=== PATIENT | male | born 1980 | race Caucasian/White ===

== ENCOUNTER 2024-06-08 06:32 | Day surgery (SDC) | payer BC, SELFPAY | END 2024-06-08 12:52 | disposition home or self-care (01) | LOC: GI 06:32 | PROVIDERS: ATTENDING PHYSICIAN Internal Medicine | DX: Z12.11 Encounter for screening for malignant neoplasm of colon (principal); K62.89 Other specified diseases of anus and rectum; D12.2 Benign neoplasm of ascending colon; D12.5 Benign neoplasm of sigmoid colon | CPT/HCPCS: 45385; 45381; 45380; 88305 ==

== ENCOUNTER → 2024-06-21 07:47 | Outpatient (REF) | payer BC, SELFPAY | LOC: RAD 07:47 | PROVIDERS: ATTENDING PHYSICIAN Internal Medicine; FAMILY PHYSICIAN Physician Assistant | DX: C18.9 Malignant neoplasm of colon, unspecified (principal) | CPT/HCPCS: 71260; 74177; Q9967 ==

== ENCOUNTER → 2024-06-24 19:00 | Outpatient (REF) | payer BC, SELFPAY | LOC: MRI 19:00 | PROVIDERS: ATTENDING PHYSICIAN Surgery; FAMILY PHYSICIAN Physician Assistant | DX: K76.89 Other specified diseases of liver (principal) | CPT/HCPCS: 74183; A9575 ==

== ENCOUNTER 2024-07-07 11:12 | Inpatient (IN) | payer BC, SELFPAY ==
[2024-06-27 08:56] LABS: Hematocrit 43.6 % (39.0-52.0); Hemoglobin 15.4 g/dL (13.0-18.0); Mean Corp Hgb Conc. 35.3 g/dL (33.0-37.0); Mean Corpuscular Hgb 30.4 pg (27.0-31.0); Mean Platelet Volume 11.4 fL (7.4-10.4); Platelet Count 210 10^3/uL (130-400); Red Blood Cell Count 5.07 10^6/uL (4.70-6.10); Red Cell Dist. Width 13.1 % (11.5-14.5); White Blood Cell Count 5.5 10^3/uL (4.8-10.8)
[2024-06-27 09:08] LABS: INR 0.99; PT 13.4 Sec (11.4-14.6)
[2024-06-27 09:09] LABS: APTT 29.9 Sec (23.4-35.0)
[2024-06-27 09:29] LABS: ALT (SGPT) 23 U/L (0-50); AST (SGOT) 21 U/L (17-59); Albumin 4.5 g/dl (3.5-5.0); Alkaline Phosphatase 73 U/L (38-126); Blood Urea Nitrogen 15 mg/dl (9-20); Calcium 9.1 mg/dl (8.4-10.2); Carbon Dioxide 30 mmol/L (22-30); Chloride 100 mmol/L (98-107); Glucose 99 mg/dl (70-99); Potassium 4.4 mmol/L (3.5-5.1); Sodium 139 mmol/L (135-145); Total Protein 6.8 g/dl (6.3-8.2); eGFR > 60.00
[2024-06-27 10:31] LABS: Glycohemoglobin (HgbA1c) 4.7 % (4.0-5.6)
[2024-06-27 10:33] VITALS: BMI 26.8
[2024-07-07] VITALS (14 sets, daily range): BP systolic 50–159; BP diastolic 84–99; BMI 26.8
[2024-07-07] MEDS: NORMOSOL-R/PLASMALYTE-A 1000 IV ×2 (11:43→19:17)
[2024-07-07] MEDS: NEURONTIN 600 MG PO (11:43)
[2024-07-07] MEDS: TYLENOL 1000 MG PO (11:44)
[2024-07-07] MEDS: ENTEREG 12 MG PO (11:44)
[2024-07-07] MEDS: HEPARIN 5000 UNITS SC (11:44)
--- NOTE | 2024-07-07 17:22 | W.OR.COLCA ---
Colon Cancer Post Op Note
Immediate Post Op
Primary Surgeon: Justice Jamil MD
Assisting Surgeon: GURMEET Reid
Pre-op Diagnosis: proximal sigmoid colon cancer
Post-op Diagnosis: same
Procedure Performed: 1) robotic sigmoidectomy 2) takedown splenic flexure 3) flexible sigmoidoscopy
Anesthesia Type: general plus local
Specimen / Cultures: 1) sigmoid colon (including some distal descending) with stitch marking proximal 2) proximal anastomotic donut
Estimated Blood Loss: 50 cc
Complications: no immediate
Operative Findings: proximal sigmoid tattoo with associated small tumor
Anastomosis at 17 cm
Winchester in bladder.
Colon Resection
Colon Resection
Operation performed with curative intent: Yes
Tumor Location: Sigmoid Colon (proximal)
Sigmoid Resection: Inferior Mesenteric
[2024-07-07 17:55] LABS: Glucose - Point of Care 150 mg/dl (70-99)
[2024-07-07] MEDS: DEMEROL 12.5 MG IV (18:02)
[2024-07-07 18:10] LABS: Hematocrit 45.4 % (39.0-52.0); Hemoglobin 15.9 g/dL (13.0-18.0); Mean Corpuscular Hgb 30.3 pg (27.0-31.0); Mean Corpuscular Volume 86.6 fL (80.0-94.0); Mean Platelet Volume 11.2 fL (7.4-10.4); Platelet Count 290 10^3/uL (130-400); Red Blood Cell Count 5.24 10^6/uL (4.70-6.10); Red Cell Dist. Width 13.1 % (11.5-14.5); White Blood Cell Count 23.9 10^3/uL (4.8-10.8)
[2024-07-07 18:25] LABS: Blood Urea Nitrogen 14 mg/dl (9-20); Calcium 8.5 mg/dl (8.4-10.2); Carbon Dioxide 20 mmol/L (22-30); Chloride 102 mmol/L (98-107); Estimated Creatinine Clearance 93 ml/min; Glucose 162 mg/dl (70-99); Magnesium 2.3 mg/dl (1.6-2.3); Potassium 4.5 mmol/L (3.5-5.1); Sodium 136 mmol/L (135-145); eGFR > 60.00
[2024-07-07 18:58] LABS: % Basophils 0.2 % (0-2); % Eosinophils 0.1 % (0-6); % Immature Granulocytes 0.7 % (0-0.5); % Lymphocytes 5.5 % (20.5-51.1); % Monocytes 2.6 % (1.7-9.3); % Neutrophils 90.9 % (42.2-75.2); Absolute Basophils 0.1 10^3/uL (0-0.2); Absolute Immature Granulocytes 0.2 10^3/uL (0-0.05); Absolute Lymphocytes 1.3 10^3/uL (1.2-3.4); Absolute Monocytes 0.6 10^3/uL (0.1-0.6); Absolute Neutrophils 21.7 10^3/uL (1.4-6.5); Nucleated Red Blood Cells % 0 % (-)
[2024-07-07] MEDS: TORADOL 15 MG IV ×2 (19:01→23:27)
[2024-07-07] MEDS: DILAUDID 0.25 MG IV (19:04)
[2024-07-07] MEDS: DILAUDID 0.5 MG IV ×2 (19:24→22:12)
[2024-07-07] MEDS: TYLENOL 650 MG PO (20:08)
--- NOTE | 2024-07-07 21:14 | PTCARENOTE ---
Pt arrived to [facility] at 1940 from PACU in a bed. Pt has 4 lap sites and RLQ YOANNA with sanguineous output. Pt on 2L of O2 96%. Winchester catheter to be removed POD #2. Pt drowsy and oriented to room and call caicedo. Bed locked and in lowest position.
Admission questions answered by pt. Pt medications that were brought in sent down to pharmacy. Care ongoing.
[2024-07-07] MEDS: ZOFRAN 4 MG IV (23:29)
[2024-07-08] MEDS: TYLENOL PO ×2 (00:04→10:51)
[2024-07-08] MEDS: DILAUDID 0.5 MG IV ×5 (02:14→19:34)
[2024-07-08 03:53] VITALS: BP 137/82
[2024-07-08] MEDS: TYLENOL 650 MG PO (04:38)
[2024-07-08] MEDS: TORADOL 15 MG IV ×4 (05:41→23:55)
[2024-07-08] MEDS: NORMOSOL-R/PLASMALYTE-A 1000 IV (05:55)
[2024-07-08 06:00] VITALS: BMI 25.0
[2024-07-08 07:07] LABS: % Basophils 0.1 % (0-2); % Immature Granulocytes 0.5 % (0-0.5); % Lymphocytes 4.9 % (20.5-51.1); % Monocytes 7.5 % (1.7-9.3); Absolute Immature Granulocytes 0.1 10^3/uL (0-0.05); Absolute Lymphocytes 0.6 10^3/uL (1.2-3.4); Absolute Monocytes 0.9 10^3/uL (0.1-0.6); Absolute Neutrophils 10.9 10^3/uL (1.4-6.5); Hematocrit 40.4 % (39.0-52.0); Hemoglobin 14.7 g/dL (13.0-18.0); Mean Corp Hgb Conc. 36.4 g/dL (33.0-37.0); Mean Corpuscular Hgb 30.8 pg (27.0-31.0); Mean Corpuscular Volume 84.5 fL (80.0-94.0); Mean Platelet Volume 11.4 fL (7.4-10.4); Nucleated Red Blood Cells % 0 % (-); Platelet Count 202 10^3/uL (130-400); Red Blood Cell Count 4.78 10^6/uL (4.70-6.10); Red Cell Dist. Width 12.6 % (11.5-14.5); White Blood Cell Count 12.5 10^3/uL (4.8-10.8)
[2024-07-08 07:26] VITALS: BP 137/94
[2024-07-08 07:44] LABS: Blood Urea Nitrogen 16 mg/dl (9-20); Calcium 8.3 mg/dl (8.4-10.2); Carbon Dioxide 24 mmol/L (22-30); Chloride 101 mmol/L (98-107); Estimated Creatinine Clearance 93 ml/min; Glucose 119 mg/dl (70-99); Magnesium 2.3 mg/dl (1.6-2.3); Potassium 4.1 mmol/L (3.5-5.1); Sodium 134 mmol/L (135-145); eGFR > 60.00
[2024-07-08] MEDS: ZOFRAN 4 MG IV ×2 (09:22→15:09)
--- NOTE | 2024-07-08 09:53 | PTCARENOTE ---
Addendum entered by Hillary Araiza RN 07/08/24 10:19:
pt made NPO with ice chips. only/meds, refused oral meds this AM
Original Note:
pt nauseous this AM small amount of vomit this AM, Zofran administered. Still c/o of headache he arrived to hospital with. Tried to convince to drink coffee since does drink daily.
--- NOTE | 2024-07-08 10:10 | W.PN.CRS1 ---
Today's Communication / Plan
-
npo with chips
lovenox
d/c travis
Assessment/Plan
-
POD#1 robotic sigmoidectomy
WBC: 12.5, Hgb 14.7
Afebrile, tachy 100-110's
-Given nausea, will back down to NPO with chips
-Maintain IVFs
-OOB as tolerated
-D/C travis
-Maintain YOANNA drain until discharge
-Lovenox for DVT prophylaxis. TEDS/SCDS in place.
-Will monitor tachycardia. Plan to consult hospitalist if persists.
-Pain control: Tylenol/Toradol standing, Dilaudid PRN.
-OR pathology pending
Subjective Data
Procedure
07/07/2024- 1) robotic sigmoidectomy 2) takedown splenic flexure 3) flexible sigmoidoscopy
Subjective Data
Date of Service: July 08, 2024
Patient states he had some belching and feels nauseous. He has mild abdominal pain. He has not vomited. No bowel function yet.
Objective Data
-
Vital Signs
Temp Pulse Resp BP Pulse Ox
98.4 F 107 16 137/94 98
07/08/24 07:26 07/08/24 07:26 07/08/24 07:26 07/08/24 07:26 07/08/24 09:30
Intake & Output
07/07/24 07/08/24 07/09/24
06:59 06:59 06:59
Intake Total 1420 / 1420 320 / 320
Output Total 760 / 760 320 / 320
Balance 660 / 660 0 / 0
Intake:
Oral fluids 120 / 120
IV fluids (Total) 1300 / 1300 320 / 320
Normosol 300 / 300
Output:
Drain Output (Total) 160 / 160 20 / 20
Right Abdomen Pepe 160 / 160
Urine, Travis 600 / 600 300 / 300
Lab Results
07/08/24 05:59
07/08/24 05:59
Physical Exam
-
General: No Acute Distress and AOx3
Abdomen: Soft, Non Distended and Tender (mild around incisions)
Skin: Warm and Dry
--- NOTE | 2024-07-08 10:43 | PTCARENOTE ---
pt order NGT for vomit, at this time is refusing. Nurse did go over concerns of ileus what it is and why we place NGT to decompress. pt stated he just had Winchester removed can he please try to walk and move and see if he improves. TT to PILAR Garland
Annette who is aware. will encourage movement and monitor
[2024-07-08 10:50] VITALS: BP 132/82
[2024-07-08] MEDS: ENTEREG PO (10:50)
[2024-07-08] MEDS: ZESTRIL PO (10:50)
[2024-07-08] MEDS: ZYRTEC PO (10:50)
[2024-07-08] MEDS: PROTONIX PO (10:50)
--- NOTE | 2024-07-08 12:30 | W.PN.UPDATE ---
Update Note
Progress Note Update
I spoke with patient. He had vomited earlier in the morning and refused NGT. I spoke with him via phone. He no longer has nausea and he passed flatus/bowel movements. I told the patient that if he vomits again, he will need an NGT. He understands
and will keep everyone updated.
[2024-07-08] MEDS: OFIRMEV 100 IV ×3 (12:40→23:55)
--- NOTE | 2024-07-08 13:17 | CON.HOSP ---
Addendum entered and electronically signed by Eduar Vallejo MD 07/08/24 16:13:
I personally performed a history and physical exam of the patient and discussed management with the resident. I reviewed the resident's note and agree with the documented findings and plan of care Consult/CC. See seperate note
Original Note:
Family Physician
-
Family Physician: Amber Dasilva
Chief Complaint
-
Frontal headache, tachycardia
History of Present Illness
Patient is a 44-year-old male with newly diagnosed sigmoid cancer status post robotic sigmoidectomy 07/07. Today is postop day 1. Earlier today, he was complaining of nausea and had one episode of vomiting. Patient denies any nausea or vomiting at
this time. He had a small bowel movement couple hours ago and has been passing gas. At this time, he complains of moderate frontal left-sided headache with left eye pain. Headache is more tension type than throbbing. Mentions he has a history of
migraine and this is very similar to his migraine episodes. Also, mentions he feels a lot of pain now that his pain meds are wearing off.
His vitals are stable except for mild tachycardia (low 100s). Denies any chest pain, shortness of breath, diaphoresis. Denies feeling strong palpitations. He is currently on not on telemetry.
His labs show mildly elevated white cell count (12.5). Rest of labs are normal.
Medical History
Past Medical History
Past Medical History: Reports Asthma (Intermittent), Cancer (Sigmoid), GERD, HTN and Psychiatric (Depression/anxiety)
Additional Past Medical History:
Vitamin D deficiency
Additional Past Surgical History:
Robotic sigmoidectomy
Social History
Tobacco: Non-smoker
Alcohol: Other (Last drink was New Year's Tara)
Drug: None
Personal:
Living: With Family
Family History
Family History: Cancer (Colon cancer in maternal grandmother and grandfather)
Allergies / Home Medications
Allergies reflects when Allergies were last updated in [facility].
Home Medications with original date entered in [facility] [facility]
Allergy/Medication List:
Allergies
Allergy/AdvReac Type Severity Reaction Status Date / Time
No Known Allergies Allergy Unverified 07/07/24 11:21
Home Medications
albuterol sulfate 90 mcg/actuation aerosol inhaler 2 puff inhalation PRN PRN SOB, Wheezes 06/30/24
cetirizine 10 mg tablet (Zyrtec) 10 mg PO DAILY 06/30/24
fluticasone 250 mcg-salmeterol 50 mcg/dose blistr powdr for inhalation (Advair Diskus) 1 inh inhalation Daily PRN SOB, Wheezes 06/30/24
lisinopril 5 mg tablet 5 mg PO DAILY 06/30/24
melatonin 5 mg chewable tablet 5 mg PO HS PRN insomnia 06/30/24
metronidazole 500 mg tablet 500 mg PO DIRECTED 06/30/24
neomycin 500 mg tablet 1 g PO DIRECTED 06/30/24
omeprazole 20 mg tablet,delayed release 20 mg PO DAILY 06/30/24
sodium sul 1.479 gram-potas ch 0.188 gram-magnes sul 0.225 gram tablet (Sutab) 0 tab PO PER PKG DIR 06/30/24
Review of Systems
-
History Source: Patient
A 12 point Review of Systems was completed except as noted: Yes
Constitutional: Reports See HPI
EENT: Reports See HPI
Respiratory: Reports See HPI
Cardiac: Reports See HPI
Abdomen/GI: Reports See HPI
: Reports See HPI
Musculoskeletal: Reports See HPI
Skin: Reports See HPI
Neurological: Reports See HPI
Endocrine: Reports See HPI
Hematologic/Lymphatic: Reports See HPI
Psych: Reports See HPI
Physical Exam
Vital Signs
Vital Signs
Temp Pulse Resp BP Pulse Ox
98.5 F 106 14 132/82 100
07/08/24 10:50 07/08/24 10:50 07/08/24 10:50 07/08/24 10:50 07/08/24 10:50
Physical Exam
General: Well Developed and Pain
HEENT: Normocephalic, Anicteric and Other (Dry mucous membranes)
Respiratory: Clear; Negative Wheezes or Rales
Cardiac: S1/S2 and Regular Rhythm
GI: Soft, Normal Bowel Sounds, Tender (Mild tenderness around site of incision), Distended and Other (YOANNA drain, incisions intact)
Rectal: Brown
Musculoskeletal: No Clubbing, Cyanosis, No Cyanosis and No Edema
Skin: Warm and Dry
Neuro: AO x 3 and No Motor Deficits; Negative Slurred Speech, Facial Droop or Tremors
Psych: Calm
Laboratory Results
-
Laboratory Results
07/08/24 05:59
07/08/24 05:59
PT 13.4 Sec (11.4-14.6) 06/27/24 06:46
INR 0.99 06/27/24 06:46
APTT 29.9 Sec (23.4-35.0) 06/27/24 06:46
Total Bilirubin 1.0 mg/dl (0.2-1.3) 06/27/24 06:46
AST 21 U/L (17-59) 06/27/24 06:46
ALT 23 U/L (0-50) 06/27/24 06:46
Alkaline Phosphatase 73 U/L (38-126) 06/27/24 06:46
Impression / Plan
-
IMPRESSION:
#Sigmoid cancer status post robotic sigmoidectomy
-POD day 1
-Keep n.p.o. for now given vomiting earlier today
-Will switch Normosol to D5 LR given migraine headaches
-Has had gas passage and bowel movements
-Continue rest of care as primary team
# Tachycardia
-Pain managed with Dilaudid 0.5 q4h, Toradol and Tylenol-might need stat pain meds if pain escalates
-Will check TSH
-EKG obtained-normal sinus tachycardia- no evidence of ischemic changes, arrhythmia or PE
-Monitor on telemetry
-Currently afebrile, if patient does develop fever, might do an infection workup
# Frontal headache
-Patient's symptoms consistent with previous migraine episodes
-Will start D5 LR
CODE STATUS
full code
[2024-07-08 15:21] VITALS: BP 131/88
--- NOTE | 2024-07-08 15:44 | CM ---
Met with pt and his at bedside
Pt reports he lives with hi in a 2 story home; 1 step to enter, 12 steps to 2nd fl
Independent, employed, drives
DME - none
SNF/HH - denies past hx
Has ride at discharge
PCP - Amber Dasilva
Pharm - [facility] on [address]
Plan - anticipate home no needs vs w/VN
--- NOTE | 2024-07-08 16:05 | W.PN.UPDATE ---
Update Note
Progress Note Update
44-year-old male admitted for elective surgery. We were consulted for headache and mild tachycardia
I personally performed a history and physical exam of the patient and discussed management with the resident. I reviewed the resident's note and agree with the documented findings and plan of care consultation/CC.
Seen earlier today. Late documentation
Patient awake alert not in any acute distress
Headache is better, no neck stiffness
Cardiovascular system mildly tachycardic
Chest clear to auscultation
Abdomen soft and nontender, YOANNA drain, diminished bowels sounds
No pedal edema no calf tenderness
# Headache # vomiting
Has a history of migraines
Also has not had coffee for the past 2 days since surgery
IV Toradol for pain
If patient can have clears would consider restarting coffee
Add dextrose to IV fluids
# Vomiting resolved.
# Tachycardia
Likely pain related as the patient is reporting pain
EKG noted
Treat pain
Check TSH
Follow on telemetry
# Colon cancer status post robotic sigmoidectomy, takedown of splenic flexure, flexible sigmoidoscopy by Dr. Jamil 07/07/2024
Diet advancement and plans per colorectal surgery
Currently n.p.o.
# History of asthma-continue Advair
# Hypertension-continue lisinopril
# Ex-smoker
# DVT prophylaxis-Lovenox
# Full code
Discussed with nursing
Discussed with family at bedside
Thank you for the consultation. We will follow the patient
[2024-07-08] MEDS: LOVENOX 40 MG SC (17:20)
[2024-07-08] MEDS: D5LR 1000 IV (17:31)
[2024-07-08 19:00] VITALS: BP 123/82
[2024-07-08] MEDS: ENTEREG 12 MG PO (19:37)
[2024-07-08 23:00] VITALS: BP 115/80
[2024-07-09] MEDS: DILAUDID 0.5 MG IV ×5 (00:36→19:47)
[2024-07-09 03:00] VITALS: BP 133/83
[2024-07-09] MEDS: D5LR 1000 IV ×2 (04:08→12:06)
[2024-07-09] MEDS: OFIRMEV 100 IV (05:29)
[2024-07-09] MEDS: TORADOL 15 MG IV ×3 (05:30→17:56)
[2024-07-09 05:55] VITALS: BMI 25.3
[2024-07-09 07:35] VITALS: BP 129/85
[2024-07-09 07:48] LABS: % Basophils 0.2 % (0-2); % Eosinophils 0.2 % (0-6); % Immature Granulocytes 0.4 % (0-0.5); % Lymphocytes 10.8 % (20.5-51.1); % Monocytes 7.5 % (1.7-9.3); % Neutrophils 80.9 % (42.2-75.2); Absolute Monocytes 0.7 10^3/uL (0.1-0.6); Absolute Neutrophils 7.4 10^3/uL (1.4-6.5); Hematocrit 38.1 % (39.0-52.0); Hemoglobin 13.4 g/dL (13.0-18.0); Mean Corp Hgb Conc. 35.2 g/dL (33.0-37.0); Mean Corpuscular Hgb 30.2 pg (27.0-31.0); Mean Corpuscular Volume 85.8 fL (80.0-94.0); Nucleated Red Blood Cells % 0 % (-); Platelet Count 173 10^3/uL (130-400); Red Blood Cell Count 4.44 10^6/uL (4.70-6.10); Red Cell Dist. Width 12.6 % (11.5-14.5); White Blood Cell Count 9.2 10^3/uL (4.8-10.8)
[2024-07-09 08:23] LABS: Blood Urea Nitrogen 13 mg/dl (9-20); Calcium 8.3 mg/dl (8.4-10.2); Carbon Dioxide 25 mmol/L (22-30); Chloride 103 mmol/L (98-107); Estimated Creatinine Clearance 93 ml/min; Glucose 118 mg/dl (70-99); Potassium 4.1 mmol/L (3.5-5.1); Sodium 136 mmol/L (135-145); eGFR > 60.00
[2024-07-09 08:52] LABS: TSH Reflex To Free T4 0.91 uIU/ml (0.47-4.68)
[2024-07-09] MEDS: PROTONIX 40 MG PO (09:28)
[2024-07-09] MEDS: ENTEREG 12 MG PO (09:28)
[2024-07-09] MEDS: ZESTRIL 5 MG PO (09:29)
[2024-07-09] MEDS: ZYRTEC PO (09:30)
[2024-07-09 11:20] VITALS: BP 134/84
--- NOTE | 2024-07-09 11:37 | W.PN.HOSP.TC ---
Today's Communication/Plan
-
Clear started
Heart rate better
Assessment / Plan
Assessment / Plan
44-year-old male admitted for elective surgery. We were consulted for headache and mild tachycardia
Patient awake alert not in any acute distress
Headache resolved
Cardiovascular system mildly tachycardic
Chest clear to auscultation
Abdomen soft and nontender, YOANNA drain, bowels sounds present
No pedal edema no calf tenderness
# Headache vomiting
Has a history of migraines
Also has not had coffee for the past 2 days since surgery
IV Toradol for pain
says FRANK improved with coffee
# Vomiting resolved.
# Tachycardia
Likely pain related as the patient is reporting pain
EKG noted
Treat pain
Normal TSH
Follow on telemetry for now
# Colon cancer status post robotic sigmoidectomy, takedown of splenic flexure, flexible sigmoidoscopy by Dr. Jamil 07/07/2024
Clears started
ABd X ray reviewed by me
# Mild hyponatremia-resolved
# History of asthma-continue Advair or equivalent
# Hypertension-continue lisinopril
# Ex-smoker
# DVT prophylaxis-Lovenox
# Full code
Discussed with nursing
Discussed with family at bedside
Discussed with colorectal
Anticipated Discharge: 24 - 48 hours
Subjective/Interval History
-
Date of Service: July 09, 2024
Objective Data
-
Labs:
Laboratory Results
07/09/24
07:01
WBC 9.2
Hgb 13.4
Hct 38.1 L
Plt Count 173
Sodium 136
Potassium 4.1
Chloride 103
Carbon Dioxide 25
BUN 13
Creatinine 0.9
Glucose 118 H
Calcium 8.3 L
Vital Signs:
Vital Signs
Temp Pulse Resp BP Pulse Ox
98.6 F 77 14 134/84 97
07/09/24 11:20 07/09/24 11:20 07/09/24 11:20 07/09/24 11:20 07/09/24 11:20
I&O
07/08/24 07/09/24 07/10/24
06:59 06:59 06:59
Intake Total 1420 / 1420 3460 / 3460
Output Total 760 / 760 2420 / 2420
Balance 660 / 660 1040 / 1040
[2024-07-09] MEDS: TYLENOL 650 MG PO ×3 (12:03→19:45)
[2024-07-09 12:24] LABS: Vitamin D, 25-OH*** < 12.8 ng/mL (30-80)
--- NOTE | 2024-07-09 13:04 | W.PN.CRS1 ---
Today's Communication / Plan
-
Clear liquids
Advance as tolerated
Assessment/Plan
-
POD#2 robotic sigmoidectomy
WBC: normal, Hgb 13.4
Afebrile, tachycardia resolved
-Clear liquids and advance to fulls as tolerated
-Stop IVFs when tolerating po
-OOB as tolerated
-Voiding after Winchester was removed
-Maintain YOANNA drain until discharge
-Lovenox for DVT prophylaxis. TEDS/SCDS in place.
-Pain control: Tylenol/Toradol standing, Dilaudid PRN.
-OR pathology pending
His was present, all questions answered.
Subjective Data
Procedure
07/07/2024- 1) robotic sigmoidectomy 2) takedown splenic flexure 3) flexible sigmoidoscopy
Subjective Data
Date of Service: July 09, 2024
He feels better today. His nausea has resolved and he is passing some flatus and loose bowel movements. He has some lower incisional pain.
Objective Data
-
Vital Signs
Temp Pulse Resp BP Pulse Ox
98.6 F 77 14 134/84 97
07/09/24 11:20 07/09/24 11:20 07/09/24 11:20 07/09/24 11:20 07/09/24 11:20
Intake & Output
07/08/24 07/09/24 07/10/24
06:59 06:59 06:59
Intake Total 1420 / 1420 3460 / 3460
Output Total 760 / 760 2420 / 2420
Balance 660 / 660 1040 / 1040
Intake:
Oral fluids 120 / 120 840 / 840
IV fluids (Total) 1300 / 1300 2320 / 2320
Normosol 300 / 300
IV piggybacks 300 / 300
Output:
Drain Output (Total) 160 / 160 100 / 100
Right Abdomen Torey-Underwood 160 / 160 100 / 100
Urine, Winchester 600 / 600 300 / 300
Urine, Voided 2019
Lab Results
07/09/24 07:01
07/09/24 07:01
Physical Exam
-
General: No Acute Distress
Abdomen: Soft, Non Distended, Non Tender and Other (YOANNA with 80cc's of ss output)
Extremities: No Calf Tenderness
Wound: No Signs of Infection
Data Reviewed
-
Diagnostic Radiology: Image Reviewed and Report Reviewed
[2024-07-09 15:15] VITALS: BP 128/84
[2024-07-09] MEDS: LOVENOX 40 MG SC (17:55)
[2024-07-09 19:45] VITALS: BP 120/84
[2024-07-09] MEDS: ENTEREG PO (19:46)
[2024-07-09 23:46] VITALS: BP 112/80
[2024-07-10] MEDS: TORADOL 15 MG IV ×3 (00:31→10:59)
[2024-07-10] MEDS: TYLENOL 650 MG PO ×4 (00:31→15:19)
[2024-07-10] MEDS: D5LR IV (00:36)
[2024-07-10] MEDS: DILAUDID 0.5 MG IV ×2 (01:15→07:58)
[2024-07-10 03:53] VITALS: BP 125/82
[2024-07-10] MEDS: TYLENOL PO (05:06)
[2024-07-10 06:00] VITALS: BMI 24.9
[2024-07-10 07:16] VITALS: BP 127/88
[2024-07-10] MEDS: ZESTRIL 5 MG PO (07:59)
[2024-07-10] MEDS: PROTONIX 40 MG PO (08:02)
[2024-07-10] MEDS: ENTEREG PO (08:02)
[2024-07-10] MEDS: ZYRTEC 10 MG PO (08:03)
--- NOTE | 2024-07-10 10:28 | W.PN.CRS1 ---
Today's Communication / Plan
-
Dispo planning
Assessment/Plan
-
44 yo male with a h/o proximal sigmoid colon cancer now POD#3 robotic sigmoidectomy
AFVSS
YOANNA removed at bedside
Tolerating liquids, passing flatus/stools
-Advance to LRD
-OOB as tolerated
-Lovenox for DVT prophylaxis. TEDS/SCDS in place.
-Pain control: Tylenol/Toradol standing, Oxycodone, Dilaudid PRN.
-OR pathology pending
His was present, all questions answered.
Tentative d/c later today vs tomorrow once tolerating diet and pain controlled
Subjective Data
Procedure
07/07/2024- 1) robotic sigmoidectomy 2) takedown splenic flexure 3) flexible sigmoidoscopy
Subjective Data
Date of Service: July 10, 2024
Patient seen and evaluated at bedside with Dr Kirk. Continues to improve. Denies n/v. Passing flatus/stools. Tolerating liquids. Pain better than previous.
Objective Data
-
Vital Signs
Temp Pulse Resp BP Pulse Ox
98.1 F 77 14 127/88 97
07/10/24 07:16 07/10/24 07:16 07/10/24 07:16 07/10/24 07:16 07/10/24 07:57
Intake & Output
07/09/24 07/10/24 07/11/24
06:59 06:59 06:59
Intake Total 3460 / 3460 2960 / 2960
Output Total 2420 / 2420 2600 / 2600
Balance 1040 / 1040 360 / 360
Intake:
Oral fluids 840 / 840 1560 / 1560
IV fluids (Total) 2320 / 2320 1400 / 1400
IV piggybacks 300 / 300
Output:
Drain Output (Total) 45 /
Right Abdomen Torey-Underwood 45 / 45
Urine, Winchester 300 / 300
Urine, Voided 2019 2555 / 255
Other:
Number of approximated MODERATE 1 1
amounts of urine
Lab Results
07/09/24 07:01
07/09/24 07:01
Physical Exam
-
General: No Acute Distress
Abdomen: Soft, Non Distended, Non Tender and Other (YOANNA with SSF, removed)
Extremities: No Calf Tenderness
Wound: No Signs of Infection
--- NOTE | 2024-07-10 10:36 | W.PN.HOSP.TC ---
Today's Communication/Plan
-
Stable
Will sign off
Assessment / Plan
Assessment / Plan
44-year-old male admitted for elective surgery. We were consulted for headache and mild tachycardia
Patient awake alert not in any acute distress
Headache completely resolved
Cardiovascular system mildly tachycardic
Chest clear to auscultation
Abdomen soft and nontender, YOANNA drain, bowels sounds present
No pedal edema no calf tenderness
# Headache vomiting
Has a history of migraines
Also has not had coffee for the past 2 days since surgery
No more FRANK
# Vomiting resolved.
# Tachycardia
Likely pain related -Normal HR now
EKG noted
Treat pain
Normal TSH
Can be off tele
# Colon cancer status post robotic sigmoidectomy, takedown of splenic flexure, flexible sigmoidoscopy by Dr. Jamil 07/07/2024
Diet advanced to low residue diet
YOANNA drain removed
# Mild hyponatremia-resolved
# History of asthma-continue Advair or equivalent
# Hypertension-continue lisinopril
# Ex-smoker
# DVT prophylaxis-Lovenox
# Full code
Discussed with nursing
Discussed with at bedside
Discussed with colorectal-discussed about signing off
Please call us back if we can be of further assistance thank you for letting us be part of the care of this patient.
Anticipated Discharge: Within 24 hours
Subjective/Interval History
-
Date of Service: July 10, 2024
Objective Data
-
Vital Signs:
Vital Signs
Temp Pulse Resp BP Pulse Ox
98.1 F 77 14 127/88 97
07/10/24 07:16 07/10/24 07:16 07/10/24 07:16 07/10/24 07:16 07/10/24 07:57
I&O
07/09/24 07/10/24 07/11/24
06:59 06:59 06:59
Intake Total 3460 / 3460 2960 / 2960
Output Total 2420 / 2420 2600 / 2600
Balance 1040 / 1040 360 / 360
[2024-07-10] MEDS: ROXICODONE 5 MG PO (15:18)
--- NOTE | 2024-07-10 15:22 | W.DCSUMMARY ---
Discharge Summary
Discharge Data
Date of Admission: 07/07/24
Date of Discharge: 07/10/24
-
Pending Results: No
Hospital Course
Mr Landry is a 44 yo male with a history of proximal sigmoid colon cancer who presented for robotic sigmoidectomy. He did well post operatively with good bowel recovery. Diet was able to be advanced and well tolerated with good control of pain. A
YOANNA drain was placed intraoperatively and removed prior to discharge. Pathology pending from OR at time of discharge.
Discharge Plan
-
Patient Disposition: Home (Routine Discharge)
Discharge Diagnosis/Procedures: 1) robotic sigmoidectomy 2) takedown splenic flexure 3) flexible sigmoidoscopy
Condition: Good
Diet: Low Residue
Activity: No strenuous activity
Additional Activity: No lifting over 10lbs (gallon of milk)
Driving Restrictions: No driving for 1 week
Bathing Restrictions: OK to Shower
Wound Care: Allow glue to naturally fall off. Do not pick at incisions.
Instructions: Low-fiber diet
Referrals:
Nick Jamil MD [Active] - in two weeks
Amber Dasilva PA [Family Provider] -
Prescriptions:
New
oxycodone 5 mg tablet
5 mg PO Q4HPRN PRN (Reason: breakthrough/severe pain) Qty: 20 0RF
acetaminophen 325 mg tablet
650 mg PO Q4HPRN PRN (Reason: mild pain) Qty: 1 0RF
ibuprofen 200 mg tablet
400 - 600 mg PO Q6HPRN PRN (Reason: moderate pain) Qty: 1 0RF
Continued
fluticasone propion-salmeterol [Advair Diskus] 250-50 mcg/dose Blister With Device
1 inh INHALATION Daily PRN (Reason: SOB, Wheezes)
cetirizine [Zyrtec] 10 mg Tablet
10 mg PO DAILY
lisinopril 5 mg Tablet
5 mg PO DAILY
neomycin 500 mg Tablet
1 g PO DIRECTED
Patient Comments:
took at 1400,1500,and 2200 on 07/07/24
albuterol sulfate 90 mcg/actuation Hfa Aerosol Inhaler
2 puff INHALATION PRN PRN (Reason: SOB, Wheezes)
melatonin 5 mg Tablet,Chewable
5 mg PO HS PRN (Reason: insomnia)
Discontinued
metronidazole 500 mg Tablet
500 mg PO DIRECTED
Patient Comments:
took at 1400,1500,and 2200 on 07/06/24
omeprazole 20 mg Tablet,Delayed Release (Dr/Ec)
20 mg PO DAILY
Sutab 1.479-0.188- 0.225 gram Tablet
0 tab PO PER PKG DIR
Discharge Orders:
Discharge Patient (As Directed); Ordered 07/10/24
Ordered By: Marly Kirk
Discharge Date and Time
Print Language: AUSTRIAN
[2024-07-10 15:29] VITALS: BP 122/89
--- NOTE | 2024-07-10 15:48 | CM ---
Pt for discharge today
Has transport home
Plan - home no needs
== END 2024-07-10 15:43 | disposition home or self-care (01) | DRG 330 ==
LOC: 2 SOUTH 11:12
PROVIDERS: Internal Medicine; Physician Assistant; ADMITTING PHYSICIAN Surgery; CONSULT PHYSICIAN Hospitalist; FAMILY PHYSICIAN Physician Assistant
PROC: 0DTN4ZZ Resection of Sigmoid Colon, Percutaneous Endoscopic Approach (ICD-10-PCS; 2024-07-08)
PROC: 0DBM4ZZ Excision of Descending Colon, Percutaneous Endoscopic Approach (ICD-10-PCS; 2024-07-08)
PROC: 8E0W4CZ Robotic Assisted Procedure of Trunk Region, Percutaneous Endoscopic Approach (ICD-10-PCS; 2024-07-08)
PROC: 0DJD8ZZ Inspection of Lower Intestinal Tract, Via Natural or Artificial Opening Endoscopic (ICD-10-PCS; 2024-07-08)
DX: C18.7 Malignant neoplasm of sigmoid colon (principal); E87.1 Hypo-osmolality and hyponatremia; I10 Essential (primary) hypertension; K21.9 Gastro-esophageal reflux disease without esophagitis; F32.A Depression, unspecified; F41.9 Anxiety disorder, unspecified; J45.20 Mild intermittent asthma, uncomplicated; E55.9 Vitamin D deficiency, unspecified; Z80.0 Family history of malignant neoplasm of digestive organs; G47.00 Insomnia, unspecified; G43.909 Migraine, unspecified, not intractable, without status migrainosus; Z79.899 Other long term (current) drug therapy; Z79.51 Long term (current) use of inhaled steroids; Z87.891 Personal history of nicotine dependence; R00.0 Tachycardia, unspecified; R11.2 Nausea with vomiting, unspecified
CPT/HCPCS: 88304; 88309; 36415; 74019; 80048; 80053; 82306; 82962; 83036; 83735; 84443; 85025; 85027; 85610; 85730; 86850; 86900; 86901; 88341; 88342; 93005; J1335

== ENCOUNTER → 2025-02-23 15:05 | Outpatient (REF) | payer BC, SELFPAY | LOC: RAD 15:05 | PROVIDERS: ATTENDING PHYSICIAN Internal Medicine Hematology & Oncology; FAMILY PHYSICIAN Physician Assistant | DX: C18.7 Malignant neoplasm of sigmoid colon (principal) | CPT/HCPCS: 71260; 74177; Q9967 ==